=== PATIENT | male | born 1950 | race Caucasian/White ===

== ENCOUNTER → 2019-10-02 | Emergency (ER) | payer BC, OTHER ==
[~2019-10-02] VITALS: Ht 170.2 cm; Wt 72.6 kg
[~2019-10-02] MED LIST: ACETAMINOPHEN 500 MG TAB PO ONE; ACETAMINOPHEN 500 MG TAB PO PRN; ALBUTEROL SULF HFA 90MCG INH 200DOSE IN SCH; ASCORBIC ACID 1,000 MG TAB PO SCH; ASCORBIC ACID 500 MG TAB PO ONE; ASPirin 81 mg TAB ONE; ASPirin 81 mg TAB PO ONE; ASPirin 81 mg TAB PO SCH; AZITHROMYCIN 500MG/ 250ML 250 ML IV ONE; CHOLECALCIFEROL (VITD3) 1,000IU=25mCg TAB PO SCH; DOXYCYCLINE 100 MG TAB/CAP PO SCH; ENOXAPARIN SOD 40 MG/0.4 ML SYRINGE SC SCH; FAMOTIDINE 20 MG TAB PO SCH; HYDROcodone-ACET 5/325MG TAB PO PRN; MORPHINE SULF INJ 2 MG/ML SYRINGE 1ML IV PRN; NITROGLYCERIN 0.4 MG SL TAB SL PRN; ONDANSETRON HCL 4 MG/2 ML VIAL IV PRN; OSELTAMIVIR 75 MG CAP PO ONE; OSELTAMIVIR 75 MG CAP PO SCH; SODIUM CHLORIDE 0.9% 1,000 ML IV SCH; ZINC SULFATE 220mg CAP or TAB PO ONE; cefTRIAXone 1GM/50ML D5W 50 ML IV ONE
[2019-10-02 15:59] LABS: Basophils # (auto) 0.1 10 ^3/uL (0-0.2); Basophils % (auto) 0.9 % (0.0-2.0); Eosinophils # (auto) 0.1 10 ^3/uL (0-0.8); Eosinophils % (auto) 1.4 % (0.0-7.0); Hematocrit 48.2 % (41.0-53.0); Hemoglobin 16.2 g/dL (13.5-17.5); Lymphocytes # (auto) 1.5 10 ^3/uL (0.4-5.4); Lymphocytes % (auto) 17.4 % (10.0-50.0); Mean Corpuscular Hgb Conc. 33.5 g/dL (32.0-36.0); Mean Corpuscular Volume 92.5 fL (80.0-100.0); Monocytes # (auto) 0.7 10 ^3/uL (0-1.3); Neutrophils # (auto) 6.4 10 ^3/uL (1.6-8.6); Neutrophils % (auto) 72.3 % (37.0-80.0); Platelet Count (auto) 202 10^3/uL (140-450); Red Blood Cells 5.22 10^6/uL (4.5-5.90); White Blood Cell 8.8 10^3/uL (4.4-10.8)
[2019-10-02 16:20] LABS: Albumin 3.5 g/dL (3.4-5.0); Anion Gap 5 (5-15); Blood Urea Nitrogen 16 mg/dL (7-18); Calcium 8.8 mg/dL (8.5-10.1); Carbon Dioxide 28 mmol/L (21-32); Chloride 107 mmol/L (98-107); Glucose 100 mg/dL (74-106); Magnesium 2.6 mg/dL (1.6-2.6); Potassium 4.1 mmol/L (3.5-5.1); Sodium 140 mmol/L (136-145)
[2019-10-02 16:26] LABS: Alanine Aminotransferase 34 U/L (16-61); Alkaline Phosphatase 115 U/L (45-117); Aspartate Aminotransferase 33 U/L (15-37); BUN/Creatinine Ratio 13.8; Bilirubin, Total 0.9 mg/dL (0.2-1.0); GFR African American 80 mL/min; GFR Non-African American 66 mL/min; Total Protein 7.4 g/dL (6.4-8.2)
[2019-10-02 18:15] VITALS: BP 111/57
== END | disposition home or self-care (01) ==
LOC: ER 15:08
DX: I24.9 Acute ischemic heart disease, unspecified (principal); I10 Essential (primary) hypertension; J11.1 Influenza due to unidentified influenza virus with other respiratory manifestations; Z20.828 Contact with and (suspected) exposure to other viral communicable diseases
CPT/HCPCS: 36415; 71045; 80053; 82728; 83605; 83615; 83735; 83880; 84443; 84484; 85025; 87040; 87070; 87804; 87880; 93005; 96365; 96368; 99285; J0456; J0696; U0003